=== PATIENT | female | born 1965 | race Hispanic/Latino ===

== ENCOUNTER 2017-10-30 12:20 | Emergency (ER) | payer OTHER ==
--- NOTE | 2017-10-30 14:06 | ER ---
Nurse's Notes [facility] Name: Fanny Vargas Age: 52 yrs Sex: Female : 1965 Arrival Date: 10/30/2017 Time: 12:23 Bed Waiting Private MD: Bhupinder Julien Diagnosis: Presentation: 10/30 12:37 Presenting complaint: Patient states: " My wrist really hurts, I don't know if I tried ph to catch myself on it or what." Pt reports pain in L wrist that radiates to hand and forearm, no swelling noted, radial pulse strong. Transition of care: patient was not received from another setting of care. Onset of symptoms was October 30, 2017. Risk Assessment: Do you want to hurt yourself or someone else? Patient reports no desire to harm self or others. Initial Sepsis Screen: Does the patient meet any 2 criteria? No. Patient's initial sepsis screen is negative. Does the patient have a suspected source of infection? No. Patient's initial sepsis screen is negative. Care prior to arrival: None. 12:37 Method Of Arrival: Ambulatory ph 12:37 Acuity: SUKHDEV 4 ph PHLEBOTOMY SUPERVISOR: 12:39 LMP N/A - Post-menopause ph Historical: - Allergies: 12:40 No Known Allergies; ph - Home Meds: 12:40 Amitriptyline Oral [Active]; Celexa Oral [Active]; Naproxen Oral [Active]; ph - PMHx: 12:40 Rheumatoid Arthritis; Fibromyalgia; ph - PSHx: 12:40 Cholecystectomy; Knee surgery; ; Hysterectomy; ph - Social history:: Smoking status: Patient/guardian denies using tobacco. Vital Signs: 12:39 BP 136 / 73; Pulse 70; Resp 18; Temp 97.4(TE); Pulse Ox 97% on R/A; Weight 104.33 kg; ph Height 5 ft. 0 in. (152.40 cm); Pain 10/10; 12:39 Body Mass Index 44.92 (104.33 kg, 152.40 cm) ph ED Course: 12:23 Patient arrived in ED. sb2 12:23 Bhupinder Julien DO is Private Physician. sb2 12:39 Triage completed. ph 12:40 Arm band placed on Patient placed in waiting room, Patient notified of wait time. ph 13:51 Patient's name was called from ER lobby. No response. ph 14:05 Patient's name was called from ER lobby. No response. Unable to locate patient. Will ph disposition as left without being seen by a provider. Administered Medications: No medications were administered Outcome: 14:06 Patient left the ED. ph Signatures: Danica Altamirano RN RN Alejandra Whitfield sb2
[2017-10-30 14:17] VITALS: BP 136/73; TEMP 97.4; O2SAT 97
== END 2017-10-30 14:06 | disposition left against medical advice (07) ==
LOC: ER 12:20
DX: Z53.21 Procedure and treatment not carried out due to patient leaving prior to being seen by health care provider (principal)
CPT/HCPCS: 99281

== ENCOUNTER 2019-01-13 07:05 | Day surgery (SDC) | payer OTHER ==
--- NOTE | 2019-01-11 15:36 | RAD REPORT ---
EXAM DESCRIPTION: RAD - Chest Pa And Lat (2 Views) - 01/11/2019 3:25 pm CLINICAL HISTORY: preop Chest pain. COMPARISON: CHEST SINGLE VIEW dated 03/13/2010; CHEST PA AND LAT 2 VIEW dated 09/26/2008; CHEST PA AND LAT 2 VIEW dated 05/16/2007 FINDINGS: The lungs are clear. The heart is normal in size. No displaced fractures. IMPRESSION: No acute or concerning finding suspected.
[2019-01-11 16:10] LABS: Absolute Lymphocytes (CBC) 2.4 K/uL (0.7-4.9); Basophils % 0.7 % (0-1.3); Hematocrit 42.9 % (36.0-45.0); Lymphocytes % 25.3 % (15.3-44.8); MPV 10.4 fL (7.6-11.3); RBC Red Blood Cell Count 4.62 M/uL (3.86-4.86)
[2019-01-11 16:22] LABS: BUN Blood Urea Nitrogen 15 mg/dL (7-18); Bicarbonate 27 mmol/L (21-32); Glucose Level 82 mg/dL (74-106); Potassium 3.8 mmol/L (3.5-5.1); Sodium Level 139 mmol/L (136-145)
--- NOTE | 2019-01-11 16:28 | EKG ---
Test Date: 2019-01-11 Test Time: 14:58:17 Customer Care Coordinator: BELIA MEASUREMENT RESULTS: Intervals: Rate: 78 DC: 142 QRSD: 96 QT: 398 QTc: 453 [place]: P: 42 DC: 142 QRS: -10 T: 16 INTERPRETIVE STATEMENTS: Normal sinus rhythm Incomplete right bundle branch block Cannot rule out Anterior infarct, age undetermined Abnormal ECG Compared to ECG 05/14/2011 11:08:43 Incomplete right bundle-branch block now present Myocardial infarct finding now present Electronically Signed On 01-11-19 16:27:50 RADIOGRAPHIC TECHNOLOGIST by Janusz Aguayo
--- OUTSIDE RECORDS SUMMARY | 2019-01-13 07:10 | XMS REPORT ---
:1965 Author Organization [employer] Care Team Providers Name Role Phone Wily Bhupinder Provider Role Unavailable Allergies, Adverse Reactions, Alerts Substance Reaction Event Type N.K.D.A. Info Not Available Non Drug Allergy Problems Problem Type Condition Code Onset Dates Condition Status Problem Depression with anxiety F41.8 Active Problem Insomnia G47.00 Active Problem Fibromyalgia M79.7 Active Assessment Upper respiratory tract infection, J06.9 Active unspecified type Assessment Acute non-recurrent maxillary J01.00 Active sinusitis Problem Repetitive intrusions of sleep G47.9 Active Problem Daytime somnolence R40.0 Active Problem Mild intermittent asthma with J45.21 Active exacerbation Problem Current tobacco use Z72.0 Active Problem Osteoarthritis involving multiple M15.9 Active joints on both sides of body Problem Blood pressure elevated without R03.0 Active history of HTN Problem Asthma without acute exacerbation J45.909 Active Medications Medication Code Code Instructions Start End Status Dosage System Date Date Celexa [facility] 62243805034 40 MG Orally Active 1 tablet Once a day Omeprazole [facility] 24258669804 20 MG Orally Active 1 capsule Once a day Amitriptyline HCl ND 15647729837 10 MG Orally Active 1/2 tablet ONCE DAILY IN PM Omeprazole ND 18571508043 20 MG Orally Active 1 capsule Once a day Symbicort [facility] 92609334638 160-4.5 MCG/ACT Feb 24, Feb 19, Active 2 puffs Inhalation 2018 2019 Twice a day Amoxicillin-Pot ND 61985808072 875-125 MG Dec 01, Dec 11, Active 1 tablet Clavulanate Orally every 12 2018 2019 hrs Benzonatate ND 52601734296 200 MG Orally Dec 01, Dec 11, Active 1 capsule Three times a 2018 2019 day Results Name Result Date Reference Range Unit Abnormality Flag STREP A RAPID ----Result Neg [id number] FLU TEST A/B ----B Neg [id number] ----A Neg [id number] Summary Purpose eClinicalWorks Submission
--- OUTSIDE RECORDS SUMMARY | 2019-01-13 07:10 | XMS REPORT ---
:1965 [facility] Address [address] [place] [address] [address]. [address] [place] [address] Care Team Providers Name Role Phone Unavailable Unavailable Unavailable Problems This patient has no known problems. Allergies, Adverse Reactions, Alerts This patient has no known allergies or adverse reactions. Medications This patient has no known medications.
[2019-01-13] MEDS ORDERED: Ringers Lactate 1,000 ML IV ONE (07:13)
[2019-01-13] MEDS ORDERED: CEFAZOLIN/SWI 1gm 1 GM/10 ML SYR ONE (07:13)
[2019-01-13] MEDS ORDERED: FENTANYL CITR 100 MCG/2 ML ONE (08:10)
[2019-01-13] MEDS ORDERED: MIDAZOLAM HCL 2 MG/2 ML INJ ONE (08:10)
[2019-01-13] MEDS ORDERED: PROPOFOL 200 MG/20 ML VIAL IV ONE (08:10)
[2019-01-13] MEDS ORDERED: LIDOCAINE 2% MPF 5 ML VIAL ONE (08:10)
[2019-01-13] MEDS ORDERED: ONDANSETRON 4 MG/2 ML VIAL ONE (08:11)
[2019-01-13] MEDS ORDERED: EPHEDRINE SULF 50 MG/ML VIAL ONE (09:56)
--- NOTE | 2019-01-13 10:12 | P.BOP ---
Preoperative diagnosis: left breast tender mass Postoperative diagnosis: same Primary procedure: Left breast lumpectomy needle localized Tailor Fitter: Vibha Arndt (Dharmesh) Estimated blood loss: <10cc Specimen: mass Findings: mass within the specimen by Dr Thorpe Anesthesia: General Complications: None Transferred to: Recovery Room Condition: Good
[2019-01-13] MEDS ORDERED: PROMETHAZINE 25 MG/ML VIAL ONE (10:40)
[2019-01-13] MEDS: HYDROMORPHONE HCL 1 MG/ML INJ ONE ×2 (11:05→11:15)
[2019-01-13 11:26] VITALS: O2SAT 98
--- NOTE | 2019-01-13 11:32 | RAD REPORT ---
EXAM DESCRIPTION: US - Surgical Specimen - 01/13/2019 10:35 am CLINICAL HISTORY: Breast mass FINDINGS: The 11 millimeter hypoechoic mass is present within the resected breast tissue
[2019-01-13] MEDS ORDERED: CODEINE 30MG/APAP 300MG TAB ONE (11:45)
--- NOTE | 2019-01-13 11:52 | RAD REPORT ---
EXAM DESCRIPTION: US - Brst,Preop NL Wire Init w/Guid - 01/13/2019 8:40 am CLINICAL HISTORY: Breast mass. COMPARISON: December 22, 2018. TECHNIQUE: The skin, subcutaneous tissues and breast tissues were anesthetized with Lidocaine Under sonographic guidance, a 7 cm Kopan's hook wire was placed adjacent to the 11 mm hypoechoic mass within the upper outer quadrant of the left breast. The patient then left for the surgical department. IMPRESSION: Ultrasound needle wire localization for a left breast mass.
[2019-01-13 12:11] VITALS: BP 112/69; TEMP 97.2
--- NOTE | 2019-01-13 20:37 | OP ---
Date of Procedure: 01/13/2019 Surgeon: Patrick Forrest MD House Decorator: Vibha Orellana. Preoperative Diagnosis: Left breast tender mass. Postoperative Diagnosis: Left breast tender mass. Procedure: Left breast lumpectomy, needle localized. Estimated Blood Loss: Less than 10 cc. Specimen: Mass. Anesthesia: General plus local. Indications: This is a case of a 53-year-old patient, who comes to us with left breast tender mass a nd she wants it excised. Given the pain and discomfort, barely can put her bra on. The benefits, al ternatives, and risks of lumpectomy were fully explained to the patient needle localized with benefit s, alternatives, and risks including, but not limited to infection, bleeding, damage to adjacent stru ctures, anesthesia complication, recurrence, PR, and even . She also understands this may not r elieve any symptoms. She might need more than one surgical intervention. She understood and signed the consent. The patient went this morning. Dr. Hanna localized the area in the radiology suite. Patient is sent to the OR making sure the wire remains intact. Description Of Procedure: Patient was brought to the operating room, placed in supine position. Ane sthesia was done without complication. Time-out was called. Left breast was prepped and draped in a sterile fashion once again making sure the wire was intact. A curvilinear incision was made over th e wire area. Wire was secured to the breast tissue with an Allis and then we proceeded to remove the lump around the area. This was a large lump, mostly some density in that region. The mass was sent to the radiologist, Dr. Hanna, who confirmed the lesion within the specimen, also intact wire. We irrigated the area, closed with 4-0 PDS and Steri-Strips on top. This was after hemostasis and loca l anesthetic. Patient tolerated the procedure well. Patient was sent to recovery in stable conditio nNeelam REGALADO/LEDY Voice ID: [id number] Report ID: [id number]
--- NOTE | 2019-01-13 20:37 | DS ---
Date of Discharge: 01/13/2019 Diagnosis: Left breast tender mass. Procedure: Left breast lumpectomy, needle localized. Disposition: Home. Activity: As tolerated. No heavy lifting. Followup: Follow up in my office in 1 week. Call for appointment at [phone]. Keep area dry for 48 hours, then may shower. Keep Steri-Strips intact. Use breast support. Patient will be seen in 1 w [place] in my office. SABINE/LEDY Voice ID: [id number] Report ID: [id number]
== END 2019-01-13 12:20 | disposition home or self-care (01) ==
LOC: OR 07:05
PROVIDERS: ATTEND Surgery
PROC: 0HBU0ZZ Excision of Left Breast, Open Approach (ICD-10-PCS; principal; 2019-01-13 09:45)
DX: N63.21 Unspecified lump in the left breast, upper outer quadrant (principal); J45.909 Unspecified asthma, uncomplicated; M79.7 Fibromyalgia; M13.859 Other specified arthritis, unspecified hip; F32.9 Major depressive disorder, single episode, unspecified; E66.01 Morbid (severe) obesity due to excess calories; Z68.41 Body mass index [BMI] 40.0-44.9, adult; F17.210 Nicotine dependence, cigarettes, uncomplicated; Z82.49 Family history of ischemic heart disease and other diseases of the circulatory system
CPT/HCPCS: 93005; 85025; 80048; 36415; 88305; 71046; 76098; 19285; 19301; J2704; J2550; J2250; J3010; J1170; J0690; J7120; J2405

== ENCOUNTER 2020-01-26 06:14 | Day surgery (SDC) | payer OTHER ==
--- NOTE | 2020-01-24 13:11 | RAD REPORT ---
EXAM DESCRIPTION: Camryn Godwin (2 Views)01/24/2020 1:05 pm CLINICAL HISTORY: Preop for breast surgery COMPARISON: 2019 FINDINGS: The lungs appear clear of acute infiltrate. The heart is normal size IMPRESSION: No acute abnormalities displayed
[2020-01-24 13:12] LABS: Absolute Lymphocytes (CBC) 2.9 K/uL (0.7-4.9); Basophils % 0.6 % (0-1.3); Hematocrit 41.5 % (36.0-45.0); Lymphocytes % 28.8 % (15.3-44.8); MPV 10.1 fL (7.6-11.3); RBC Red Blood Cell Count 4.51 M/uL (3.86-4.86)
[2020-01-24 13:28] LABS: BUN Blood Urea Nitrogen 13 mg/dL (7-18); Bicarbonate 28 mmol/L (21-32); Glucose Level 92 mg/dL (74-106); Sodium Level 142 mmol/L (136-145)
--- NOTE | 2020-01-25 12:06 | EKG ---
Test Date: 2020-01-24 Test Time: 12:45:57 Automobile Parker: MARYBEL MEASUREMENT RESULTS: Intervals: Rate: 70 TN: 144 QRSD: 92 QT: 416 QTc: 449 [place]: P: 37 TN: 144 QRS: -12 T: 21 INTERPRETIVE STATEMENTS: Normal sinus rhythm Normal ECG Compared to ECG 01/11/2019 14:58:17 Incomplete right bundle-branch block no longer present Myocardial infarct finding no longer present Electronically Signed On 01-25-20 11:52:34 WOOD STAINER by Rahat Iniguez
--- OUTSIDE RECORDS SUMMARY | 2020-01-26 06:17 | XMS REPORT | Continuity of Care Document ---
:1965 Author Organization [facility] [place] [employer] [place] Care Team Providers Name Role Phone [facility] Jitendra [employer] Unavailable Un available Problems Problem Status Onset Classification Date Comments Sourc e Date Reported WEIGHT Active [facility] st LOSS, BMI 8 45 C WEIGHT Active [facility] st LOSS, BMI 8 45 Medications No Data Provided for This Section Allergies, Adverse Reactions, Alerts No Known Medication Allergies Immunizations No Data Provided for This Section Results No Data Provided for This Section Pathology Reports No Data Provided for This Section Diagnostic Reports No Data Provided for This Section Consultation Notes No Data Provided for This Section Discharge Summaries No Data Provided for This Section History and Physicals No Data Provided for This Section Vital Signs No Data Provided for This Section Encounters Location Location Encounter Encounter Reason Attending ADM [place] Stat Source Details Type Number For Provider Date Date Visit [facility] [id number] [facility] 01/23 02/22 [facility] /2017 [facility] Recurring [id number] [facility] 02/27 03/29 [facility] /2018 [facility] Procedures No Data Provided for This Section Assessment and Plan No Data Provided for This Section Plan of Care No Data Provided for This Section Social History Social History Date Source No data available for this 02/22/2018 [facility] section Family History No Data Provided for This Section Advance Directives No Data Provided for This Section Functional Status No Data Provided for This Section
--- OUTSIDE RECORDS SUMMARY | 2020-01-26 06:17 | XMS REPORT | Continuity of Care Document ---
:1965 Author Organization [facility] t Address [address] [place] [address] Care Team Providers Name Role Phone Felipe Attending Clinician Unavailable Problems Condition Condition Condition Status Onset Resolution Last Treating Co mments Source Name Details Category Date Date Treatment Clinician Date WEIGHT Diagnosis Active 2017-022018-02-27 [facility] LOSS, BMI 2-07 09:07:00 l 45 C WEIGHT 00:00: Tl n LOSS, BMI 00 45 C Active 01/23/2018 [facility] WEIGHT Diagnosis Active 2017-022018-01-23 Mem oria LOSS, BMI 1-30 09:36:00 l 45 WEIGHT 00:00: [place] LOSS, BMI 00 45 Active 8 [facility] Allergies, Adverse Reactions, Alerts This patient has no known allergies or adverse reactions. Social History Social Habit Start Date Stop Date Quantity Comments Source Social History 2018-02-22 2018-02-22 [facility] pratima 05:59:00 05:59:00 Medications Ordered Filled Start Stop Current Ordering Indication Dosage Frequency Signature Comments Components Source Medication Medication Date Date Medication? Clinician (SIG) Name Name Amoxicillin Amoxicillin 2018-02- No Bhupinder [address] [facility] 0-15 10-25 [facility] Cl[facility] 00[facility] Benzonatate Benzonatate 2018-02- No Bhupinder [address] [facility] 0-15 10-25 [facility] Symbicort Symbicort 2019-0 2020- No Bhupinder [address] [facility] 102-19 [facility] Amitriptyli Amitriptyli Yes Bhupinder 1/[address] [facility] ne HCl ne HCl [facility] Celexa Celexa Yes [facility] Omeprazole Omeprazole Yes Bhupinder [address] [facility] Omeprazole Omeprazole Yes Bhupinder [address] [facility] Procedures This patient has no known procedures. Encounters Start End Encounter Admission Attending Care Care Encounter Source Date/Time Date/Time Type Type Clinicians Facility Department ID 2019-12-02 2019-12-02 [facility] [id number] 2019-05-13 2019-05-13 [facility] [id number] [facility] 11:52:00 11:52:00 t IDverge s [employer] [facility] Out[facility] Clinics 2018-12-01 2018-12-01 [facility] [id number] [facility] 09:15:00 09:15:00 t IDverge s [employer] [facility] Out[facility] Clinics 2018-08-03 2018-08-03 [facility] [id number] [facility] 13[facility]45:00 13:45:00 t IDverge s - [employer] [facility] Outpati ent Clinics 2018-02-27 2018-03-28 Outpatient REX [facility] [id number] 09:07:00 23:59:00 Libby 01 2018-03-17 2018-03-17 [facility] [id number] 12:21:00 12:21:00 t IDverge s [employer] [facility] Out[facility] Clinics 2018-02-24 2018-02-24 [facility] [id number] [facility] 10:30:00 10:30:00 t RUN [facility] 2018-01-23 2018-02-21 Outpatient KARL Wang [facility] [id number] 09:28:00 23:59:00 Libby 00 2018-02-03 2018-02-03 [facility] [id number] [address] 13:15:00 13:15:00 [facility] 2017-12-03 2017-12-03 [facility] [id number] 16:00:00 16:00:00 [facility] Results This patient has no known results.
[2020-01-26] MEDS ORDERED: CEFAZOLIN/SWI 1gm 1 GM/10 ML SYR ONE (07:05)
[2020-01-26] MEDS ORDERED: Ringers Lactate 1,000 ML IV ONE (07:05)
[2020-01-26] MEDS ORDERED: METHYLENE BLUE 0.5% 10 ML AMP ONE (07:40)
[2020-01-26] MEDS: FENTANYL CITR 100 MCG/2 ML ONE ×2 (08:11→08:22)
--- NOTE | 2020-01-26 08:28 | RAD REPORT ---
EXAM DESCRIPTION: US - Brst,Preop NL Wire Init w/Guid - 01/26/2020 8:08 am CLINICAL HISTORY: NEEDLE LOC COMPARISON: Mammogram and ultrasound studies January 02 TECHNIQUE: Patient presents for preoperative needle localization of a hypoechoic mass in the upper o uter quadrant of the breast. Prior imaging studies were reviewed. Consent was obtained as part of the surgical consent. Patient had no contraindicated allergy or medication history. Time-out procedure w as performed. Preliminary imaging again identified the hypoechoic 7- 8 millimeter mass in the [address] o[address] approximately 1.5 cm deep to the skin surface. Skin was prepped and draped in the usual sterile fa shion. From an inferior approach, skin and deeper tissues were anesthetized with 1% lidocaine under d irect sonographic visualization. A [place] mammo lock 5 centimeter long was advanced under sonographic guidance. Needle tip punctured the mass and the hookwire was set. Patient tolerated procedure well and was transferred to the surgical holding area pending biopsy. IMPRESSION: Successful ultrasound-guided needle localization right breast mass as detailed.
[2020-01-26] MEDS ORDERED: dexAMETHasone 10 MG/ML VIAL ONE (09:14)
[2020-01-26] MEDS ORDERED: FENTANYL CITR 100 MCG/2 ML ONE (09:14)
[2020-01-26] MEDS ORDERED: MIDAZOLAM HCL 2 MG/2 ML INJ ONE (09:14)
[2020-01-26] MEDS ORDERED: propofoL 200 MG/20 ML VIAL IV ONE (09:14)
[2020-01-26] MEDS ORDERED: LIDOCAINE 2% MPF 5 ML VIAL ONE (09:14)
[2020-01-26] MEDS ORDERED: ONDANSETRON 4 MG/2 ML VIAL ONE (09:15)
--- NOTE | 2020-01-26 10:00 | P.BOP ---
Preoperative diagnosis: right breast tender mass/complex cyst Postoperative diagnosis: same Primary procedure: Excisional biopsy of right breast mass needle localized Transplant Worker: GREGORY VILLALPANDO (EGG SORTER) Estimated blood loss: <10cc Anesthesia: General Complications: None Transferred to: Recovery Room Condition: Good
[2020-01-26] MEDS ORDERED: MORPHINE 10 MG/ML VIAL ONE (10:02)
[2020-01-26] MEDS ORDERED: KETOROLAC 30 MG/ML INJ ONE (10:29)
[2020-01-26] MEDS ORDERED: MEPERIDINE HCL 25 MG/ML SYR IV ONE ×2 (10:37→10:54)
[2020-01-26] MEDS ORDERED: HYDROMORPHONE HCL 1 MG/ML INJ IV ONE (10:39)
[2020-01-26] MEDS ORDERED: PROMETHAZINE INJ 25 MG/ML AMP IV ONE (10:48)
[2020-01-26] MEDS ORDERED: HYDROMORPHONE HCL 1 MG/ML INJ ONE (10:52)
[2020-01-26] MEDS ORDERED: MEPERIDINE HCL 25 MG/ML SYR ONE (10:52)
[2020-01-26] MEDS ORDERED: PROMETHAZINE INJ 25 MG/ML AMP ONE (11:02)
--- NOTE | 2020-01-26 11:52 | DS ---
Diagnosis: Right breast tender mass, complex cyst. Procedure: Excisional biopsy of right breast mass, needle localized. Disposition: Home. Activity: As tolerated. No heavy lifting. Plan: Follow up in my office in 1 week. Call for appointment [phone]. Keep area dry for 48 hours, then may shower. Keep Steri-Strips intact. Use breast support. JONATHAN Voice ID: [id number] Report ID: [id number]
[2020-01-26 11:59] VITALS: BP 133/68; TEMP 97; O2SAT 98
--- NOTE | 2020-01-26 12:06 | OP ---
Date of Procedure: 01/26/2020 Surgeon: Patrick Forrest MD Floor Steward/Stewardess: Dinora Deleon. Diagnosis: Right breast tender mass complex cyst. Postoperative Diagnosis: Right breast tender mass complex cyst. Procedure: Excisional biopsy right breast mass needle localized. Estimated Blood Loss: Less than 10 mL. Anesthesia: General plus local. Complications: None. Findings: Lesion within the specimen by Dr. Javier with intact needle. Description Of Procedure: This is the case of a female, who comes to us with a tender right upper qu adrant mass complex cyst. She was fully explained the options that she might have. She wants it exc ised and biopsied Since this might be a complex cyst, then we would not be able to get specific or de finite conclusion for her, so she wants the mass excised. Due to location we believe that it should be needle localized first and she did agree. The patient went this morning to Radiology suite which she had localization of the mass and then brought to the OR and keeping the area intact. The patient was brought to the operating room after that. The patient fully explained again the benefits, alter natives, and risks of excision which include, but not limited to infection, bleeding, damage to adjac ent structures, anesthesia complication, recurrence, [place], and even . She also understands this m ay not relieve her symptoms. She might need more than one surgical intervention. The patient kate t to the operating room, placed in supine position. Anesthesia was done without complication. A sylwia e-out was called. The right breast was prepped and draped in a sterile fashion. We confirmed with h er it was the right breast and noted in the part of the consent. The patient was confused about the site, but then she agreed with us it was the right side and Radiology too, so that was checked before we put her to sleep. Once again, she did agree with the right breast, that area was marked. So, af ter the patient was anesthetized, then we prepped the right breast in usual sterile fashion. Local a nesthesia was applied, followed by sharp incision of the skin curvilinear in area next to the needle. The needle and the breast tissue were secured with Allis and then we proceeded to remove the lump a nd the tissue surrounding the area. The mass was marked for orientation and sent with the needle to radiologist who confirmed the lesion within the specimen. was closed. Just we irrigated the area after hemostasis and then closed the area with 3-0 chromic after making sure the sponge coun t and instrument count is correct. Patient tolerated the procedure well. Patient sent to Recovery i n stable condition. SABINE/LEDY Voice ID: [id number] Report ID: [id number]
--- NOTE | 2020-01-26 12:36 | RAD REPORT ---
EXAM DESCRIPTION: US - Surgical Specimen - 01/26/2020 10:19 am FINDINGS: Sonographic evaluation was performed of the surgical specimen. The localization procedure was detailed earlier. Specimen shows the hypoechoic mass to be contained within the specimen.
[2020-01-26] MEDS ORDERED: CODEINE 30MG/APAP 300MG TAB ONE (12:53)
== END 2020-01-26 13:15 | disposition home or self-care (01) ==
LOC: OR 06:14
PROVIDERS: ATTEND Surgery
PROC: 0HBT0ZX Excision of Right Breast, Open Approach, Diagnostic (ICD-10-PCS; principal; 2020-01-26 08:30)
DX: N60.11 Diffuse cystic mastopathy of right breast (principal); F41.9 Anxiety disorder, unspecified; F32.9 Major depressive disorder, single episode, unspecified; F17.210 Nicotine dependence, cigarettes, uncomplicated; Z80.3 Family history of malignant neoplasm of breast; Z20.828 Contact with and (suspected) exposure to other viral communicable diseases; M79.7 Fibromyalgia; E66.9 Obesity, unspecified; J45.909 Unspecified asthma, uncomplicated
CPT/HCPCS: 93005; 85025; 80048; 36415; 88305; 71046; 76098; 19285; 19125; U0002; J2704; J2550 ×2; J2250; J3010 ×2; J1100; J2175 ×3; J1170 ×2; J0690; J7120; J2405

== ENCOUNTER 2021-11-04 11:51 | Emergency (ER) | payer OTHER ==
--- OUTSIDE RECORDS SUMMARY | 2021-11-04 11:55 | XMS REPORT | Continuity of Care Document ---
:1965 Author Organization [facility] t Address [address] [place] [place] [address] Care Team Providers Name Role Phone AGRENTINA JULIEN Primary Care Physician Unavailable [place] Julien Attending Clinician Unavailable Apolinar CARY Attending Clinician Unavailable Apolinar Stark Attending Clinician Elgin PhD, Sharon Hinojosa Attending Clinician Unavailable LITO HAYDEN Attending Clinician Unavailable FELECIA POLANCO Attending Clinician Unavailable Devan Logan MD Attending Clinician Devan LOGAN Attending Clinician Unavailable Dinora Segovia Attending Clinician Unavailable Doctor Unassigned, [place] Attending Clinician Unavailable Libby Wang Attending Clinician Unavailable Payers Payer Name Policy Type Policy Number Effective Date Expiration Date S phylicia HUMANA CHOICE [id number] 2017 00:00:00 [employer] MEDICARE [id number] HMO - RNPO PCP MEDICARE-PART B 5 [id number] 2021 00:00:00 Problems Condition Condition Condition Status Onset Resolution Last Treating Co mments Source Name Details Category Date Date Treatment Clinician Date WEIGHT WEIGHT Diagnosis Active 2017-022018-02-27 Me moria LOSS, BMI LOSS, BMI 2-07 09:07:00 l 45 C 45 C 00:00: Tl monzon Active 00 01/23/2018 [facility] WEIGHT WEIGHT Diagnosis Active 2017-022018-01-23 Me moria LOSS, BMI LOSS, BMI 1-30 09:36:00 l 45 45 Active 00:00: Jitendra 01/16/2018 00 [facility] No known No known Disease Unive rs active active ity of problems problems [facility] Allergies, Adverse Reactions, Alerts Allergy Allergy Status Severity Reaction(s) Onset Inactive Treating Comm ents Source Name Type Date Date Clinician NO KNOWN Drug Active Univers ALLERGIE Class ity of S [facility] Social History Social Habit Start Date Stop Date Quantity Comments Source History of tobacco Cigarette Smoker [facility] Medicine Exposure to 2021-10-23 2021-11-02 Not sure University SARS-CoV-2 (event) 00:00:00 10:37:00 [facility] Alcohol intake 2021-07-09 2021-07-09 .43 /d [facility] Col lege of 00:00:00 00:00:00 Medicine Cigarettes smoked 2021-06-27 2021-06-27 [facility] of current (pack per 00:00:00 00:00:00 Medicin e day) - Reported Cigarette 2021-06-27 2021-06-27 [facility] of pack-years 00:00:00 00:00:00 Medicine Tobacco use and 2021-06-27 2021-06-27 Smokeless [facility] Co llege of exposure 00:00:00 00:00:00 tobacco non-user Medicine Sex Ass[birth year] At [birth year] JODIE Nettless 00:00:00 00:00:00 [facility] Center Smoking Status Start Date Stop Date Source Tobacco smoking consumption Univ [facility] Branch Light tobacco smoker 2021-06-27 00:00:00 [facility] Medicine Medications Ordered Filled Start Stop Current Ordering Indication Dosage Frequency Signature Comments Components Source Medication Medication Date Date Medication? Clinician (SIG) Name Name diphenhydrA 25mg 25 mg, Uni vers MINE 11-02 Slow IV ity of (BENADRYL) 18:45: 17:45 [place], [place] injection 00 :00 ONCE, 1 Medical 25 mg dose, On Branch 11/02/21 at 1345, STAT metoclopram 2021- No 10mg 10 mg, Uni vers quiana HCl 11-02 Slow IV ity of (REGLAN) 18:45: 17:45 Push, [place] injection 00 :00 ONCE, 1 Medical 10 mg dose, On Branch 11/02/21 at 1345, YUSRA ketorolac 2021- No 15mg 15 mg, Unive rs (TORADOL) 11-02 Slow IV ity of injection 18:45: 17:44 Push, [place] 15 mg 00 :00 ONCE, 1 Medical dose, On Branch 11/02/21 at 1345, YUSRA NaCl 0.9% 2021- No 1000mL at 999 Uni vers (NS) bolus 11-02 mL/hr, ity of infusion 18:15: 18:35 1,000 mL, [place] as 1,000 mL 00 :00 IV Medical Infusion, Branch ONCE, 1 dose, On 11/02/21 at 1315, STAT ondansetron 2021- No 4mg 4 mg, Univ ers (ZOFRAN-ODT 11-02 Oral, ity of ) 17:30: 16:23 ONCE, 1 [place] disintegrat 00 :00 dose, On Medi andrews ing tablet Fri Branch 4 mg 11/02/21 at 1230, Routine acetaminoph 2021- No 1000mg 1,000 mg, Univers en 11-02 Oral, ity of (TYLENOL) 16:30: 16:23 ONCE, 1 [place] tablet 00 :00 dose, On Medical 1,000 mg Fri Branch 11/02/21 at 1130, YUSRA ibuprofen 2021-0 Yes [id number] 600mg Take 1 U nivers 600 mg 9-16 tablet by ity of tablet 00:00: mouth [place] 00 every 6 Medical (six) Branch hours as needed for Pain (scale 4-6). ondansetron 2021-0 Yes [id number] 4mg Take 1 Univers 4 mg 9-16 tablet by ity of disintegrat 00:00: mouth [place] ing tablet 00 every 8 Medica l (eight) Branch hours as needed for Nausea and Vomiting (N/V). benzonatate Yes [id number] 200mg Take 1 Univers 200 mg 9-16 capsule by ity of capsule 00:00: mouth 3 [place] 00 (three) Medical times Branch daily as needed for Cough for up to 20 doses. albuterol 0 Yes 3 ml as [facility] (PROVENTIL) 06-27 needed Colleg e (2.5 mg/3 09:58: of mL) 0.083% 51 Medicin nebulizer e solution Nebulizer Yes See Admin [place] [facility] 06-27 [facility] 09:58: ns. of [facility] [place] Medicin e omeprazole 0 Yes 1 capsule [facility] (PRILOSEC) 06-27 [facility] 20 MG 09:58: of capsule 51 Medicin e trazodone 0 Yes TAKE 1 [facility] (DESYREL) 06-27 TABLET BY Colle ge 100 MG 09:58: MOUTH of tablet 51 EVERYDAY Medicin AT BEDTIME e albuterol 0 Yes 3 ml as [facility] (PROVENTIL) 06-27 needed Colleg e (2.5 mg/3 09:58: of mL) 0.083% 51 Medicin nebulizer e solution Nebulizer Yes See Admin [place] [facility] 06-27 [facility] 09:58: ns. of [facility] [place] 51 Medicin e omeprazole 0 Yes 1 capsule [facility] (PRILOSEC) 06-27 [facility] 20 MG 09:58: of capsule 51 Medicin e trazodone 0 Yes TAKE 1 [facility] (DESYREL) 511 TABLET BY Colle ge 100 MG 09:58: MOUTH of tablet 51 EVERYDAY Medicin AT BEDTIME e albuterol 2021-0 Yes 3 ml as [facility] (PROVENTIL) 06-27 needed Colleg e (2.5 mg/3 09:58: of mL) 0.083% 51 Medicin nebulizer e solution Nebulizer Yes See Admin [place] [facility] 06-27 [facility] 09:58: ns. of [facility] [place] 51 Medicin e omeprazole 0 Yes 1 capsule [facility] (PRILOSEC) 06-27 [facility] 20 MG 09:58: of capsule 51 Medicin e trazodone Yes TAKE 1 [facility] (DESYREL) 06-27 TABLET BY Colle ge 100 MG 09:58: MOUTH of tablet 51 EVERYDAY Medicin AT BEDTIME e albuterol Yes 3 ml as [facility] (PROVENTIL) 06-27 needed Colleg e (2.5 mg/3 09:58: of mL) 0.083% 51 Medicin nebulizer e solution Nebulizer Yes See Admin [place] [facility] 06-27 [facility] 09:58: ns. of MISC 51 Medicin e omeprazole Yes 1 capsule [facility] (PRILOSEC) 06-27 [facility] 20 MG 09:58: of capsule 51 Medicin e trazodone Yes TAKE 1 [facility] (DESYREL) 06-27 TABLET BY Colle ge 100 MG 09:58: MOUTH of tablet 51 EVERYDAY Medicin AT BEDTIME e Amoxicillin Amoxicillin 2018-02- No [place] 1 tablet Common -Pot -Pot 0-15 10-25 [facility] Clavulanate Clavulanate 00:00: 00:00 - CHI 00 :00 [facility] Benzonatate Benzonatate 2018-02- No [place] 1 capsule Common 0-15 10-25 [facility] 00:00: 00:00 - CHI 00 :00 [facility] Symbicort Symbicort 2020- No [place] 2 puffs Common 1-08 01-03 [facility] 00:00: 00:00 - CHI 00 :00 [facility] albuterol Yes 2{puff} Inhale 2 U nivers (PROAIR 1-06 Puffs ity of HFA) 90 00:00: every 6 [place] mcg/actuati 00 (six) Medical on inhaler hours as Branc h needed for Wheezing or Shortness of Breath. albuterol Yes 2.5mg Inhale 3 Uni vers 2.5 mg /3 1-06 mL every 4 ity of mL (0.083 00:00: (four) [place] %) 00 hours as Medical nebulizer needed for Bran ch solution Wheezing or Shortness of Breath. albuterol 2019-0 Yes 2{puff} Inhale 2 U nivers (PROAIR 1-06 Puffs ity of HFA) 90 00:00: every 6 [place] mcg/actuati 00 (six) Medical on inhaler hours as Branc h needed for Wheezing or Shortness of Breath. albuterol Yes 2.5mg Inhale 3 Uni vers 2.5 mg /3 1-06 mL every 4 ity of mL (0.083 00:00: (four) [place] %) 00 hours as Medical nebulizer needed for Bran ch solution Wheezing or Shortness of Breath. ALBUTEROL 2017-0 Yes [facility] [place] [address] [place] [address] 00:00: of Medicin e ALBUTEROL Yes [address] 00:00: of Medicin e ALBUTEROL 2017-[address] 00:00: of Medicin e ALBUTEROL 2017-[address] 00:00: of 00 Medicin e citalopram 2015-0 Yes 1{tbl} 1 Tablet. [facility] (CELEXA) 40 5-14 College MG tablet 00:00: of 00 Medicin e citalopram 2016-0 Yes 1{tbl} 1 Tablet. [place] (CELEXA) 40 5-14 College MG tablet 00:00: of 00 Medicin e citalopram 2016-0 Yes 1{tbl} 1 Tablet. [place] (CELEXA) 40 5-14 College MG tablet 00:00: of 00 Medicin e citalopram 2016-0 Yes 1{tbl} 1 Tablet. [facility] (CELEXA) 40 5-14 College MG tablet 00:00: of 00 Medicin e LEVOTHYROXI Yes None Univer s NE 75 MCG 8-04 Entered ity of ORAL TAB 14:21: [address] CELEXA 40 Yes None Univers MG ORAL TAB 8-04 Entered ity o f 14:21: [address] LEVOTHYROXI Yes None Univer s [place] 75 MCG 8-04 Entered ity of ORAL TAB 14:21: [address] CELEXA 40 Yes None Univers MG ORAL TAB 8-04 Entered ity o f 14:21: [address] HYDROCODONE 2007-1 Yes Take one Un evelia -ACETAMINOP 2-09 by mouth ity of HEN 5-325 [place]AL [place] 00 6 hours as Me dical needed for Branch pain. HYDROCODONE 2006-02 Yes Take one Un evelia -ACETAMINOP 2-09 by mouth ity of HEN 5-325 [place]AL TAB 00 6 hours as Me dical needed for Branch pain. CYCLOBENZAP 2006-02 Yes Take one Un evelia RINE 5 MG 2-03 tablet by ity o f ORAL TAB 00:00: mouth [place] three Medical times a Branch day HYDROCODONE 2006-02 Yes Take one Un evelia -ACETAMINOP 2-03 by mouth ity of HEN 5-325 [place]AL TAB 00 6 hours as Me dical needed for Branch pain. IBUPROFEN 2006-02 Yes one tab po Un evelia 800 MG ORAL 2-03 tid. ity of TAB 00:00: [place] [facility] CYCLOBENZAP 2006-02 Yes Take one Un evelia RINE 5 MG 2-03 tablet by ity o f ORAL TAB 00:00: mouth three Medical times a Branch day HYDROCODONE 2006-02 Yes Take one Un evelia -ACETAMINOP 2-03 by mouth ity of HEN 5-325 [place]:00: [place]AL TAB 00 6 hours as Me dical needed for Branch pain. IBUPROFEN 2006-02 Yes one tab po Un evelia 800 MG ORAL 2-03 tid. ity of TAB 00:00: Medical Branch HYDROCODONE 2005-0 Yes 1-2 Tab Uni vers -ACETAMINOP 9-23 Oral ity of HEN 5-325 00:00: Q4HPRN [place] MG ORAL TAB 00 Medical Branch DOCUSATE 2005-0 Yes take one Unive rs SODIUM 100 9-23 po bid ity of MG ORAL CAP 00:00: Medical Branch HYDROCODONE 2005-0 Yes 1-2 Tab Uni vers -ACETAMINOP 9-23 Oral ity of HEN 5-325 00:00: Q4HPRN [place] MG ORAL TAB 00 Medical Branch DOCUSATE 2005-0 Yes take one Unive rs SODIUM 100 9-23 po bid ity of MG ORAL CAP 00:00: Medical Branch Amitriptyli Amitriptyli Yes [place] 1/2 tablet Common ne HCl ne HCl [facility] Celexa Celexa Yes [place] 1 tablet Commo n [facility] Omeprazole Omeprazole Yes [place] [address] [facility] Omeprazole Omeprazole Yes [place] 1 capsule [facility] Vital Signs Vital Name Observation Time Observation Value Comments Source Systolic blood 2021-11-02 18:00:00 146 mm[Hg] Univer [facility]ity of [facility] Diastolic blood 2021-11-02 18:00:00 59 [facility]Hg[facility] 2021-11-02 18:00:00 83 /min [facility] Oxygen saturation in 2021-11-02 18:00:00 94 /min [facility] blood by [place] [facility] Pulse oximetry Branch Respiratory rate 2021-11-02 17:54:00 22 /min [facility] Body temperature 2021-11-02 15:40:00 37.22 [facility] Body height 2021-11-02 15:40:00 152.4 cm [facility] Body weight 2021-11-02 15:40:00 108.863 kg [facility] BMI 2021-11-02 15:40:00 46.87 kg/m2 [facility] Body weight 2021-10-16 13:13:00 108[facility]727 [facility] BMI 2021-10-16 13:13:00 46.81 kg/m2 [facility] Body height 2021-08-23 13:06:00 [facility].4 [facility] Body weight 2021-08-23 13:06:00 110.859 [facility] BMI 2021-08-23 13:06:00 47.73 kg/m2 [facility] Systolic blood 2021-06-27 14:56:00 137 mm[Hg] [facility] Medicine Diastolic blood 2021-06-27 14:56:00 80 mm[Hg] [employer] [facility] [employer] [facility] Heart rate 2021-06-27 14:56:00 67 /min [facility] Body height 2021-06-27 14:56:00 152.4 cm [facility] Body weight 2021-06-27 14:56:00 109.181 kg [facility] BMI 2021-06-27 14:56:00 47.01 kg/m2 [facility] Procedures Procedure Date / Time Performing Clinician Source Performed CT HEAD WO CONTRAST 2021-11-02 17:23:26 Apolinar Cary [facility] URINALYSIS 2021-11-02 16:36:00 Apolinar Cary [place] [facility] RAPID INFLUENZA A/B 2021-11-02 16:16:00 Apolinar Cary [facility] COVID-19 (ID NOW RAPID 2021-11-02 16:16:[address] [facility] TESTING) [facility] NOTICE OF PRIVACY 2021-11-02 15:30:36 Doctor Unassigned, No Univ [facility] PRACTICES Name [facility] CONSENT/REFUSAL FOR 2021-11-02 15:29:56 [facility], [facility] EGD W/MAC - GI DEPT 2021-10-16 09:18:24 [facility] IRON+TIBC+%SAT 2021-06-27 10:59:31 [facility] IRON, TIBC AND FERRITIN 2021-06-27 10:59:31 [facility] Medicine THYROID PROFILE (T3U - 2021-06-27 10:59:31 [facility] T4 - T7 - TSH) Medicine URINALYSIS, COMPLETE 2021-06-27 10:59:31 [facility]/REFLEX TO CULTURE Medicine VITAMIN A 2021-06-27 10:59:31 [facility] VITAMIN B1 2021-06-27 10:59:31 [facility] VITAMIN B12 2021-06-27 10:59:31 [facility] VITAMIN B-6 LEVEL 2021-06-27 10:59:31 [facility] 25 HYDROXY 2021-06-27 10:59:31 [facility] Medicine AMB REF TO PHYSICAL MED 2021-06-27 10:59:31 [facility] REHAB [facility] AMB REF TO SLEEP LAB 2021-06-27 10:59:31 [facility] EXTERNAL Medicine CBC W/AUTO DIFF WITH 2021-06-27 10:59:31 [facility] COMPREHENSIVE METABOLIC 2021-06-27 10:59:31 [facility] FOLATE 2021-06-27 10:59:31 [facility] HEMOGLOBIN A1C 2021-06-27 10:59:31 [facility] PT INSTR GIVEN - TOBACCO 2021-06-27 10:00:52 [facility] AMB REF TO BARIATRIC 2021-06-20 15:55:27 [facility] SURGERY [facility] REFERRAL- 2021-01-25 06:01:00 Doctor Unassigned, No Univer [facility] REQUEST/RESPONSE Name Medical Branch Plan of Care Planned Activity Planned Date Details Comments Source Future Scheduled 2021-10-18 INFLUENZA VACCINE (#1) [facility] Test 00:00:00 [code = INFLUENZA Medical Ce nter VACCINE (#1)] Future Scheduled 2021-10-16 Screening for malignant [facility] Test 08:24:31 neoplasm of colon of Medicin e (procedure) [code = 001059956] Future Scheduled 2021-10-16 Screening for malignant [facility] Test 08:24:31 neoplasm of breast of Medici ne (procedure) [code = 048444148] Future Scheduled 2021-10-16 COVID-19 Vaccine (#1) [facility] Test 08:24:31 [code = COVID-19 Vaccine of Medicine (#1)] Future Scheduled 2021-10-16 Pneumococcal Combined (1 [facility] Test 08:24:31 - PCV) [code = of Medicine Pneumococcal Combined (1 - PCV)] Future Scheduled 2021-10-16 TETANUS SHOT (ADULT) [facility] Test 08:24:31 [code = TETANUS SHOT of Medi cine (ADULT)] Future Scheduled 2021-10-16 Hepatitis C screening [facility] Test 08:24:31 (procedure) [code = of Medic ine 082885232] Future Scheduled 2021-10-16 Human immunodeficiency [employer] Test 08:24:31 virus screening of Medicine (procedure) [code = 630896820] Future Scheduled 2021-10-16 Screening for malignant [place] [employer] Test 08:24:31 neoplasm of cervix of Medici ne (procedure) [code = 019541546] Future Scheduled 2021-10-16 ZOSTER VACCINE (1 of 2) [place] [employer] Test 08:24:31 [code = ZOSTER VACCINE of Me dicine (1 of 2)] Future Scheduled 2021-10-16 MEDICARE IPPE (WELCOME [facility] [employer] Test 08:24:31 TO MEDICARE) [code = of Medi cine MEDICARE IPPE (WELCOME TO MEDICARE)] Future Scheduled 2021-10-16 FLU VACCINE > 6 MONTHS [employer] Test 08:24:31 [code = FLU VACCINE > 6 of M edicine MONTHS] Future Scheduled 2021-10-16 BMI FOLLOW UP PLAN [code [facility] Test 08:24:31 = BMI FOLLOW UP PLAN] of Med icine Future Scheduled 2021-10-16 Screening for malignant [facility] Test 08:24:31 neoplasm of colon of Medicin e (procedure) [code = 224640500] Future Scheduled 2021-10-16 Screening for malignant [facility] Test 08:24:31 neoplasm of breast of Medici ne (procedure) [code = 378751297] Future Scheduled 2021-10-16 COVID-19 Vaccine (#1) [facility] [employer] Test 08:24:31 [code = COVID-19 Vaccine of Medicine (#1)] Future Scheduled 2021-10-16 Pneumococcal Combined (1 [place] [employer] Test 08:24:31 - PCV) [code = of Medicine Pneumococcal Combined (1 - PCV)] Future Scheduled 2021-10-16 TETANUS SHOT (ADULT) [place] [facility] [employer] Test 08:24:31 [code = TETANUS SHOT of Medi cine (ADULT)] Future Scheduled 2021-10-16 Hepatitis C screening [facility] [employer] Test 08:24:31 (procedure) [code = of Medic ine 274767185] Future Scheduled 2021-10-16 Human immunodeficiency [facility] [employer] Test 08:24:31 virus screening of Medicine (procedure) [code = 231336831] Future Scheduled 2021-10-16 Screening for malignant [facility] Test 08:24:31 neoplasm of cervix of Medici ne (procedure) [code = 175986144] Future Scheduled 2021-10-16 ZOSTER VACCINE (1 of 2) [facility] Test 08:24:31 [code = ZOSTER VACCINE of Me dicine (1 of 2)] Future Scheduled 2021-10-16 [facility]IC[facility] IPPE [facility] 08:24:31 TO MEDICARE) [code = of Medi cine MEDICARE IPPE (WELCOME TO MEDICARE)] Future Scheduled 2021-10-16 FLU VACCINE > 6 MONTHS [facility] 08:24:31 [code = FLU VACCINE > 6 of M edicine MONTHS] Future Scheduled 2021-10-16 BMI FOLLOW UP PLAN [code [facility] Test 08:24:31 = BMI FOLLOW UP PLAN] of Med icine Future Scheduled 2021-08-24 Screening for malignant [facility] Test 10:48:22 neoplasm of colon of Medicin e (procedure) [code = 093866297] Future Scheduled 2021-08-24 Screening for malignant [facility] Test 10:48:22 neoplasm of breast of Medici ne (procedure) [code = 880162325] Future Scheduled 2021-08-24 COVID-19 Vaccine (#1) [facility] Test 10:48:22 [code = COVID-19 Vaccine of Medicine (#1)] Future Scheduled 2021-08-24 Pneumococcal Combined (1 [facility] Test 10:48:22 - PCV) [code = of Medicine Pneumococcal Combined (1 - PCV)] Future Scheduled 2021-08-24 TETANUS SHOT (ADULT) [facility] Test 10:48:22 [code = TETANUS SHOT of Medi cine (ADULT)] Future Scheduled 2021-08-24 Hepatitis C screening [facility] [employer] Test 10:48:22 (procedure) [code = of Medic ine 140996678] Future Scheduled 2021-08-24 Human immunodeficiency [facility] Test 10:48:22 virus screening of Medicine (procedure) [code = 207857604] Future Scheduled 2021-08-24 Screening for malignant [facility] Test 10:48:22 neoplasm of cervix of Medici ne (procedure) [code = 993713538] Future Scheduled 2021-08-24 ZOSTER VACCINE (1 of 2) [facility] Test 10:48:22 [code = ZOSTER VACCINE of Me dicine (1 of 2)] Future Scheduled 2021-08-24 MEDICARE IPPE (WELCOME [facility] Test 10:48:22 TO MEDICARE) [code = of Medi cine MEDICARE IPPE (WELCOME TO MEDICARE)] Future Scheduled 2021-08-24 FLU VACCINE > 6 MONTHS [employer] Test 10:48:22 [code = FLU VACCINE > 6 of M edicine MONTHS] Future Scheduled 2021-08-24 BMI FOLLOW UP PLAN [code [facility] Test 10:48:22 = BMI FOLLOW UP PLAN] of Med icine Future Scheduled 2021-07-09 Screening for malignant [facility] Test 09:35:46 neoplasm of colon of Medicin e (procedure) [code = 479520392] Future Scheduled 2021-07-09 Screening for malignant [facility] Test 09:35:46 neoplasm of breast of Medici ne (procedure) [code = 324819862] Future Scheduled 2021-07-09 COVID-19 Vaccine (#1) [facility] Test 09:35:46 [code = COVID-19 Vaccine of Medicine (#1)] Future Scheduled 2021-07-09 Pneumococcal Combined (1 [facility] Test 09:35:46 - PCV) [code = of Medicine Pneumococcal Combined (1 - PCV)] Future Scheduled 2021-07-09 TETANUS SHOT (ADULT) [facility] Test 09:35:46 [code = TETANUS SHOT of Medi cine (ADULT)] Future Scheduled 2021-07-09 Hepatitis C screening [facility] Test 09:35:46 (procedure) [code = of Medic ine 287752030] Future Scheduled 2021-07-09 Human immunodeficiency [facility] Test 09:35:46 virus screening of Medicine (procedure) [code = 774333681] Future Scheduled 2021-07-09 Screening for malignant [facility] Test 09:35:46 neoplasm of cervix of Medici ne (procedure) [code = 888722708] Future Scheduled 2021-07-09 ZOSTER VACCINE (1 of 2) [facility] Test 09:35:46 [code = ZOSTER VACCINE of Me dicine (1 of 2)] Future Scheduled 2021-07-09 MEDICARE IPPE (WELCOME [facility] Test 09:35:46 TO MEDICARE) [code = of Medi cine MEDICARE IPPE (WELCOME TO MEDICARE)] Future Scheduled 2021-07-09 FLU VACCINE > 6 MONTHS [facility] Test 09:35:46 [code = FLU VACCINE > 6 of M edicine MONTHS] Future Scheduled 2021-07-09 BMI FOLLOW UP PLAN [code [facility] Test 09:35:46 = BMI FOLLOW UP PLAN] of Med icine Future Scheduled 2021-06-27 CBC W/AUTO DIFF WITH Ordered: [facility] Test 10:59:31 PLATELETS [code = 06/27/2021 of Medicin e 89570-4] Future Scheduled 2021-06-27 COMPREHENSIVE METABOLIC Ordered: [facility] Test 10:59:31 PANEL [code = 27132-6] 06/27/2021 of Me dicine Future Scheduled 2021-06-27 FOLATE [code = 2284-8] Ordered: [facility] Test 10:59:31 06/27/2021 of Medicine Future Scheduled 2021-06-27 HEMOGLOBIN A1C [code = Ordered: [facility] Test 10:59:31 4548-4] 06/27/2021 of Medicine Future Scheduled 2021-06-27 IRON+TIBC+%SAT [code = Ordered: [facility] Test 10:59:31 NOCPT] 06/27/2021 of Medicine Future Scheduled 2021-06-27 IRON, TIBC AND FERRITIN Ordered: [facility] Test 10:59:31 PANEL [code = NOCPT] 06/27/2021 of Medi cine Future Scheduled 2021-06-27 THYROID PROFILE (T3U - Ordered: [facility] Test 10:59:31 T4 - T7 - TSH) [code = 06/27/2021 of Me dicine NOCPT] Future Scheduled 2021-06-27 URINALYSIS, COMPLETE Ordered: [facility] Test 10:59:31 W/REFLEX TO CULTURE 06/27/2021 of Medic ine [code = 13023-2] Future Scheduled 2021-06-27 VITAMIN A [code = Ordered: [facility] Test 10:59:31 2923-1] 06/27/2021 of Medicine Future Scheduled 2021-06-27 VITAMIN B1 [code = Ordered: [facility] Test 10:59:31 63699-8] 06/27/2021 of Medicine Future Scheduled 2021-06-27 VITAMIN B12 [code = Ordered: [facility] Test 10:59:31 2132-9] 06/27/2021 of Medicine Future Scheduled 2021-06-27 VITAMIN B-6 LEVEL [code Ordered: [facility] Test 10:59:31 = [id number]] 06/27/2021 of Medicine Future Scheduled 2021-06-27 VITAMIN D 25 HYDROXY Ordered: [facility] Test 10:59:31 [code = 1989-3] 06/27/2021 of Medicine Future Scheduled 2021-06-27 ELECTROCARDIOGRAM 1 Occurrences [facility] Test 10:59:31 COMPLETE [code = 20176] starting of M edicine 06/27/2021 until 06/27/2022 Future Scheduled 2021-06-27 XR CHEST PA AND LATERAL 1 Occurrences [facility] Test 10:59:31 [code = 96682-3] starting of Medicine 06/27/2021 until 06/27/2022 Future Scheduled 2021-06-27 EGD W/MAC - GI DEPT 1 Occurrences [facility] Test 10:59:31 [code = 20442] starting of Medicine 06/27/2021 until 12/28/2021 Future Scheduled 2021-06-27 PT INSTR GIVEN - TOBACCO Ordered: [facility] Test 10:00:52 [code = NOCPT] 06/27/2021 of Medicine Future Scheduled 2021-02-[address] [facility] Test 00:00:00 (12+) [code = DEPRESSION [facility] (12+)] Future Scheduled 2020-02-19 MEDICARE ANNUAL WELLNESS [facility] Test 00:00:00 (YEAR 2 or FIRST YEAR if [facility] no [facility]PE) [code = MEDICARE ANNUAL WELLNESS (YEAR 2 or FIRST YEAR if no IPPE)] Future Scheduled 2017-04-22 SHINGLES VACCINES ([address] [facility] Test 00:00:00 2) [code = SHINGLES Medical Center VACCINES (1 of 2)] Future Scheduled 2012-04-22 Lipid panel (procedure) [facility] Test 00:00:00 [code = 64922937] Medical Ce nter Future Scheduled 1988-04-22 Screening for malignant [facility] Test 00:00:00 neoplasm of cervix Medical C enter (procedure) [code = 654127132] Future Scheduled 1986-04-22 DTAP/TDAP/TD VACCINES ([address] [facility] Test 00:00:00 - Tdap) [code = Medical Cent er DTAP/TDAP/TD VACCINES (1 - Tdap)] Future Scheduled 1985-04-22 HEPATITIS C SCREENING [facility] Test 00:00:00 [code = HEPATITIS C Medical Center SCREENING] Future Scheduled 1965 COVID-19 VACCINE (#1) [facility] Test 00:00:00 [code = COVID-19 VACCINE Med ica Center (#1)] Future Scheduled 1965 Sigmoidoscopy [code = [facility] Test 00:[facility]:00 Sigmoidoscopy] Medical Cente r Future Scheduled 1965 Screening for malignant [facility] Test 00:00:00 neoplasm of breast Medical C enter (procedure) [code = 749073075] Future Scheduled 1965 CT Colonography (combo) [facility] Test 00:00:00 [code = CT Colonography [facility] Center (combo)] Future Scheduled 1965 Screening for malignant [facility] Test 00:00:00 neoplasm of colon Medical Ce nter (procedure) [code = 141583049] Future Scheduled 1965 Screening for malignant [facility] Test 00:00:00 neoplasm of colon Medical Ce nter (procedure) [code = 550628196] Future Scheduled 1967 Screening for malignant [facility] Test 00:00:00 neoplasm of colon Medical Ce nter (procedure) [code = 143839427] Future Scheduled 1967 Screening for malignant [facility] Test 00:00:00 neoplasm of colon Medical Ce nter (procedure) [code = 217462374] Encounters Start End Encounter Admission Attending Care Care Encounter Source Date/Time Date/Time Type Type Clinicians Facility Department ID 2021-03-14 [facility] [id number] 14:40:08 [place] [facility] 2021-03-14 [facility] [id number] Common 14:19:37 [place] [id number] [facility] 2021-03-14 [facility] [id number] Common 13:09:27 [place] [id number] [facility] 2021-03-14 [facility] [id number] Common 13:05:51 [place] [id number] [facility] 2021-03-14 Outpatient Julien, [facility] [id number] Common 13:02:51 [place] [id number] [facility] 2021-03-14 Outpatient Julien, [facility] [id number] Common 12:14:31 [place] [id number] [facility] 2021-03-14 Outpatient Julien, [facility] [id number] Common 11:55:30 [place] [id number] [facility] 2021-11-02 2021-11-02 Emergency X Apolinar [facility] ERT [id number] [employer] 10:42:00 13:41:00 ity of Surgery [facility] 2021-11-02 2021-11-02 Emergency Apolinar [facility] [id number] Univers 10:42:00 13:41:00 Arabella RANGEL 350.1.13.10 i ty [facility] 4.2.7.2.686 [facility] [id number] [facility]rews 084 Branch 2021-10-16 2021-10-16 Office GABRIELE Eisenberg [id number] [place] [address] 09:30:00 10:56:19 Visit Sharon A AMBULATOR 350.1.13.21 College Y 0.2.7.2.686 of [id number] [facility] laura 810 e 2021-10-16 2021-10-16 Office GABRIELE HAYDEN [id number] [place] [address] 07:50:45 08:33:14 Visit LITO AMBULATOR 350.1.13.21 College Y 0.2.7.2.686 of [id number] [facility] laura 810 e 2021-10-10 2021-10-10 [facility] [id number] Common 00:00:00 00:00:00 [facility] 2021-09-21 2021-09-21 Outpatient SHEREEN POLANCO [id number] [place] 09:30:00 09:30:00 FELECIA bob 2021-08-23 2021-08-23 Office GABRIELE HAYDEN 1.2.840.[id number] [place] [address] 07:55:26 10:09:21 Visit LITO AMBULATOR 350.1.13.21 College Y 0.2.7.2.686 of [id number] [facility] laura 810 e 2021-07-13 2021-07-13 ambulatory [facility] [id number] Common 00:00:00 00:00:00 [facility] 2021-06-27 2021-06-27 Office Devan Logan [id number] [facility] 10:30:00 11:12:12 Visit [place] AMBULATOR 350.1.13.21 College Y 0.2.7.2.686 of [id number] [facility] laura 805 e 2021-06-20 2021-06-20 Outpatient Devan LOGAN [facility] [id number] [place] [address] 00:00:00 00:00:00 Bill Medicin e 2021-05-30 2021-05-30 ambulatory [facility] [id number] Common 00:00:00 00:00:00 [facility] 2021-03-14 2021-03-14 ambulatory [facility]C [facility] [id number] Common 00:00:00 00:00:00 [facility] 2021-03-13 2021-03-13 ambulatory [facility] [id number] Common 00:00:00 00:00:00 [facility] 2021-02-13 2021-02-13 Telephone Luca, [facility] [id number] [facility] 00:00:00 00:00:00 [facility] 2021-01-31 2021-01-31 ambulatory STLMLC [facility] [id number] Common 00:00:00 00:00:00 [facility] 2021-01-25 2021-01-25 Orders Doctor VALLES 1.2.840.[id number] [place] [address] 00:00:00 00:00:00 Only Unassigned, BHARAT 350.1.13.10 [place] [facility] 4.2.7.2.686 Bartolo as [id number] [place] [address] Branch 2020-10-19 2020-10-19 Outpatient [facility] [id number] Common 00:00:00 00:00:00 [facility] 2020-07-19 2020-07-19 Outpatient [facility] [id number] Common 00:00:00 00:00:00 [facility] 2020-06-29 2020-06-29 Outpatient [facility] [id number] Common 00:00:00 00:00:00 [facility] 2019-12-02 2019-12-02 Outpatient [facility] [id number] Common 00:00:00 00:00:00 [facility] 2019-05-13 2019-05-13 [facility] [id number] Common 11:52:00 11:52:[address] [facility] 2018-12-01 2018-12-01 [facility] [id number] Common 09:15:00 09:15:[address] [facility] 2018-08-03 2018-08-03 [facility] [id number] Common 13:45:00 13:45:[address] [facility] 2018-02-27 2018-03-29 Recurring nullFlavo [facility] [id number] Memoria 15:07:00 05:59:00 r Jitendra [facility] 2018-02-27 2018-03-29 Recurring nullFlavo [facility] 83794 24584 Memoria 15:07:00 05:59:00 rick Ham 01 [facility] 2018-02-27 2018-03-28 Outpatient KARL Wang [facility]SE [id number] 09:07:00 23:59:00 Libby 2018-03-17 2018-03-17 [facility] [id number] Common 12:21:00 12:21:[address] [facility] 2018-02-24 2018-02-24 [facility] [id number] Common 10:30:00 10:30:[address] [facility] 2018-01-23 2018-02-22 Recurring nullFlavo [facility] [id number] Memoria 15:28:00 05:59:00 r Jitendra 00 l [facility] 2018-01-23 2018-02-22 Recurring nullFlavo [facility] 49557 65428 Memoria 15:28:00 05:59:00 r Jitendra 00 l [facility] 2018-01-23 2018-02-21 Outpatient KARL Wang [facility] [id number] 09:28:00 23:59:00 Libby 2018-02-03 2018-02-03 [facility] [id number] Common 13:15:00 13:15:[address] [facility] 2017-12-03 2017-12-03 [facility] [id number] Common 16:00:00 16:00:[address] [facility] Results This patient has no known results.
[2021-11-04] MEDS ORDERED: DIPHENHYDRAMINE 50 MG/ML VIAL ONE (12:24)
[2021-11-04] MEDS ORDERED: NA CHLORIDE 0.9% 1,000 ML ONE (12:24)
[2021-11-04] MEDS ORDERED: METOCLOPRAMIDE 10 MG/2mL INJ ONE (12:24)
[2021-11-04 12:43] LABS: Absolute Lymphocytes (CBC) 1.9 K/uL (0.7-4.9); Hematocrit 42.9 % (36.0-45.0); Lymphocytes % 21.7 % (15.3-44.8); MCV 89.5 fL (80-100); MPV 9.5 fL (7.6-11.3)
[2021-11-04 12:52] LABS: Potassium 3.3 mmol/L (3.5-5.1)
--- NOTE | 2021-11-04 13:45 | RAD REPORT ---
EXAM DESCRIPTION: CT - Head Brain Wo Cont - 11/04/2021 1:01 pm CLINICAL HISTORY: Headache COMPARISON: Lower Extremity Artery Uni Ltd dated 10/10/2021No comparisons TECHNIQUE: Axial 5 mm thick images of the head were obtained without IV contrast. All CT scans are performed using dose optimization technique as appropriate and may include automated exposure control or mA/KV adjustment according to patient size. FINDINGS: No intracranial hemorrhage, mass, edema or shift of mid-line structures. No acute infarcti on changes seen. No abnormal extra-axial fluid collections. Ventricles are normal. Mastoid air cells and visualized portions of the paranasal sinuses are clear. No acute bony findings. IMPRESSION: Negative non-contrast CT head examination.
[2021-11-04] MEDS ORDERED: KETOROLAC 30 MG/ML INJ ONE (14:47)
--- NOTE | 2021-11-04 15:44 | RAD REPORT ---
EXAM DESCRIPTION: CT - Head angio - 11/04/2021 3:19 pm CLINICAL HISTORY: Headache, new or worsening TECHNIQUE: During dynamic enhancement using nonionic IV contrast, axial 1 millimeter thick images of the head were obtained. Sagittal and axial reconstruction images were generated using MIP technique and reviewed. All CT scans are performed using dose optimization technique as appropriate and may include automated exposure control or mA/KV adjustment according to patient size. COMPARISON: CT head same date FINDINGS: No aneurysm or vascular malformation identified. Major venous sinuses are patent. No stenosis, named branch occlusion, vasculitis or other significant vascular finding identifiable. R ight vertebral artery terminates at the posteroinferior cerebellar artery. Large bilateral posterior communicating arteries are present supplying the majority of the posterior cerebral artery circulatio n. These variants result in the normally small basilar artery. IMPRESSION: Negative CT angio head examination for acute or significant finding.
--- NOTE | 2021-11-04 16:27 | ER ---
Nurse's Notes [facility] Name: Fanny Vargas Age: 56 yrs Sex: Female : 1965 Arrival Date: 11/04/2021 Time: 11:52 Bed 2 Private MD: Bhupinder Julien Diagnosis: Headache;Essential (primary) hypertension Presentation: 11/04 12:07 Chief complaint: Headache and nausea x 6 days. Coronavirus screen: At this time, the iw client does not indicate any symptoms associated with coronavirus-19. Ebola Screen: No symptoms or risks identified at this time. Risk Assessment: Do you want to hurt yourself or someone else? Patient reports no desire to harm self or others. Onset of symptoms was October 30, 2021. 12:07 Method Of Arrival: Wheelchair iw 12:07 Acuity: SUKHDEV 3 iw 16:57 Initial Sepsis Screen: Does the patient meet any 2 criteria? No. Patient's initial jl7 sepsis screen is negative. Does the patient have a suspected source of infection? No. Patient's initial sepsis screen is negative. Historical: - Allergies: 12:08 No Known Drug Allergies; iw - Home Meds: 12:08 Amitriptyline Oral [Active]; Celexa Oral [Active]; Naproxen Oral [Active]; iw - PMHx: 12:08 Fibromyalgia; Rheumatoid Arthritis; iw 12:08 Hypertension; iw - Immunization history:: Adult Immunizations up to date. - Social history:: Smoking status: Patient denies any tobacco usage or history of. Screenin:29 Abuse screen: Denies threats or abuse. Denies injuries from another. Nutritional jl7 screening: No deficits noted. Tuberculosis screening: No symptoms or risk factors identified. Fall Risk IV access (20 points). Total Matos Fall Scale indicates No Risk (0-24 pts). Assessment: 12:29 General: Appears in no apparent distress. uncomfortable, Behavior is cooperative, jl7 appropriate for age, anxious. Pain: Complains of pain in forehead Pain radiates to top of head and occipital area Pain currently is 12 out of 10 on a pain scale. Quality of pain is described as throbbing, Pain began x6 days Is continuous. Neuro: Level of Consciousness is awake, alert, obeys commands, Oriented to person, place, time, situation, Distributed Generation Project Manager are equal bilaterally Moves all extremities. Full function Gait is steady, Speech is normal, Facial symmetry appears normal, Reports photophobia. Cardiovascular: Patient's skin is warm and dry. Respiratory: Airway is patent Respiratory effort is even, unlabored, Respiratory pattern is regular, symmetrical. GI: Reports nausea. Derm: Skin is pink, warm \T\ dry. 13:12 Reassessment: Patient appears in no apparent distress at this time. pt returned from 7 CT, reports decrease in pain, rated 8/10 at this time. 14:40 Reassessment: Patient appears in no apparent distress at this time. Patient and/or jl7 family updated on plan of care and expected duration. Pain level reassessed. Patient is alert, oriented x 3, equal unlabored respirations, skin warm/dry/pink. Pt reports increased pain, rated 10/10, ERD gave VO for 15 mg Toradol IVP, pt medicated as ordered. 15:30 Reassessment: Patient appears in no apparent distress at this time. Patient and/or jl7 family updated on plan of care and expected duration. Pain level reassessed. Patient is alert, oriented x 3, equal unlabored respirations, skin warm/dry/pink. pain decreased, rated 8/10 at this time. Vital Signs: 12:07 BP 106 / 68; Pulse 85; Resp 16; Temp 98.1; Pulse Ox 100% on R/A; Pain 10/10; iw 12:29 BP 136 / 73; Pulse 79; Resp 15; Pulse Ox 100% ; Pain 10/10; jl7 13:12 BP 138 / 83; Pulse 72; Resp 20; Pulse Ox 96% ; Pain 8/10; jl7 14:30 BP 151 / 71; Pulse 72; Resp 15; Pulse Ox 96% ; Pain 10/10; jl7 15:30 Pain 8/10; jl7 15:30 BP 139 / 75; Pulse 67; Resp 15; Pulse Ox 96% ; Pain 8/10; jl7 ED Course: 11:52 Patient arrived in ED. am2 11:52 Bhupinder Julien DO is Private Physician. am2 12:04 Greg Choi DO is Attending Physician. ms3 12:08 Triage completed. iw 12:08 Arm band placed on. iw 12:09 Bassem Richey, RN is Primary Nurse. jl7 12:29 Patient has correct armband on for positive identification. Bed in low position. Call jl7 light in reach. Side rails up X2. Pulse ox on. NIBP on. 12:29 Initial lab(s) drawn, by me, sent to lab. Inserted saline lock: 20 gauge in left jl7 antecubital area, using aseptic technique. Blood collected. 13:02 CT Head Brain wo Cont In Process Unspecified. EDMS 15:21 CT Head Angio In Process Unspecified. EDMS 16:25 Syd Thomas MD is Referral Physician. ms3 16:56 No provider procedures requiring assistance completed. IV discontinued, intact, jl7 bleeding controlled, No redness/swelling at site. Pressure dressing applied. Administered Medications: 12:26 Drug: NS 0.9% 1000 ml Route: IV; Rate: 1000 ml; Site: left antecubital; jl7 16:00 Follow up: IV Status: Completed infusion; IV Intake: 1000ml jl7 12:27 Drug: Reglan (metoCLOPramide) 10 mg Route: IVP; Site: left antecubital; jl7 13:19 Follow up: Response: No adverse reaction jl7 12:28 Drug: Benadryl (diphenhydrAMINE) 25 mg Route: IVP; Site: left antecubital; jl7 13:19 Follow up: Response: No adverse reaction jl7 14:39 Drug: TORadol - (ketorolac) 15 mg Route: IVP; Site: left antecubital; jl7 15:30 Follow up: Pain 8/10 Adult; Response: No adverse reaction; Pain is decreased jl7 16:50 Drug: Decadron - Dexamethasone 8 mg Route: IVP; Site: left antecubital; jl7 16:54 Follow up: Response: Medication administered at discharge. jl7 16:53 Not Given (Physician Discretion): Dexamethasone 10 mg IVP once; (not to exceed 40 mg) jl7 Medication: 12:29 VIS not applicable for this client. jl7 Intake: 16:00 IV: 1000ml; Total: 1000ml. jl7 Outcome: 16:26 Discharge ordered by . ms3 16:56 Discharged to home ambulatory, with family. jl7 16:56 Condition: stable 16:56 Discharge instructions given to patient, family, Instructed on discharge instructions, follow up and referral plans. medication usage, Demonstrated understanding of instructions, follow-up care, medications, Prescriptions given X 1. 16:57 Patient left the ED. jl7 Signatures: Dispatcher [employer] Yamileth Figueroa RN Bassem Gonzales RN RN jl7 Bettina Spain am2 Greg Choi DO DO ms3
--- NOTE | 2021-11-04 16:27 | EDPHYS ---
Physician Documentation [facility] Name: Fanny Vargas Age: 56 yrs Sex: Female : 1965 Arrival Date: 11/04/2021 Time: 11:52 Bed 2 Private MD: W[facility] ED Physician Greg Choi HPI: 11/04 12:31 This 56 yrs old Female presents to ER via Wheelchair with complaints of ms3 Headache. 12:31 56-year-old female with past medical history of fibromyalgia, rheumatoid arthritis, ms3 hypertension presents for headache that began on Friday. Patient states the headache has become worse. Patient states the pain is 10/10 described as throbbing and located generally throughout her head. Patient states she has taken ibuprofen without relief. Patient was seen in [place] on Friday without a diagnosis.. Historical: - Allergies: 12:08 No Known Drug Allergies; iw - Home Meds: 12:08 Amitriptyline Oral [Active]; Celexa Oral [Active]; Naproxen Oral [Active]; iw - PMHx: 12:08 Fibromyalgia; Rheumatoid Arthritis; iw 12:08 Hypertension; iw - Immunization history:: Adult Immunizations up to date. - Social history:: Smoking status: Patient denies any tobacco usage or history of. ROS: 12:31 Constitutional: Negative for fever, and chills. Eyes: Negative for injury, pain, ms3 redness, and discharge, Neck: Negative for injury, pain, and swelling, Cardiovascular: Negative for chest pain, and palpitations. Respiratory: Negative for shortness of breath, cough, wheezing, and pleuritic chest pain, Abdomen/GI: Negative for abdominal pain, nausea, vomiting, diarrhea, and constipation, MS/Extremity: Negative for injury and deformity, Skin: Negative for injury, rash, and discoloration. 12:31 Neuro: Positive for headache. Exam: 12:31 Constitutional: This is a well developed, well nourished patient who is awake, alert, ms3 and in no acute distress. Head/Face: Normocephalic, atraumatic. Neck: Trachea midline, no cervical lymphadenopathy. Supple, full range of motion without nuchal rigidity, or vertebral point tenderness. No Meningismus. Chest/axilla: Normal chest wall appearance and motion. Nontender with no deformity. Cardiovascular: Regular rate and rhythm with a normal S1 and S2. No gallops, murmurs, or rubs. Normal PMI, no JVD. No pulse deficits. Respiratory: Lungs have equal breath sounds bilaterally, clear to auscultation and percussion. No rales, rhonchi or wheezes noted. No increased work of breathing, no retractions or nasal flaring. Abdomen/GI: Soft, non-tender, with normal bowel sounds. No distension or tympany. No guarding or rebound. No evidence of tenderness throughout. Skin: Warm, dry with normal turgor. Normal color with no rashes, no lesions, and no evidence of cellulitis. MS/ Extremity: Pulses equal, no cyanosis. Neurovascular intact. Full, normal range of motion. Neuro: Awake and alert, GCS 15, oriented to person, place, time, and situation. Cranial nerves II-XII grossly intact. Motor strength 5/5 in all extremities. Sensory grossly intact. Cerebellar exam normal. Normal gait. Psych: Awake, alert, with orientation to person, place and time. Behavior, mood, and affect are within normal limits. Vital Signs: 12:07 BP 106 / 68; Pulse 85; Resp 16; Temp 98.1; Pulse Ox 100% on R/A; Pain 10/10; iw 12:29 BP 136 / 73; Pulse 79; Resp 15; Pulse Ox 100% ; Pain 10/10; jl7 13:12 BP 138 / 83; Pulse 72; Resp 20; Pulse Ox 96% ; Pain 8/10; jl7 14:30 BP 151 / 71; Pulse 72; Resp 15; Pulse Ox 96% ; Pain 10/10; jl7 15:30 Pain 8/10; jl7 15:30 BP 139 / 75; Pulse 67; Resp 15; Pulse Ox 96% ; Pain 8/10; jl7 MDM: 12:10 Patient medically screened. ms3 12:31 Differential diagnosis: migraine, subarachnoid bleed, tension headache. ms3 16:54 Data reviewed: vital signs, nurses notes, lab test result(s), radiologic studies, and ms3 as a result, I will discharge patient. Counseling: I had a detailed discussion with the patient and/or guardian regarding: the historical points, exam findings, and any diagnostic results supporting the discharge/admit diagnosis, lab results, radiology results, the need for outpatient follow up, to return to the emergency department if symptoms worsen or persist or if there are any questions or concerns that arise at home. Special discussion: I discussed with the patient/guardian in detail that at this point there is no indication for admission to the hospital. It is understood, however, that if the symptoms persist or worsen the patient needs to return immediately for re-evaluation. ED course: Patient is improved, alert and oriented x4, in no apparent distress, nontoxic-appearing, ambulatory in emergency department, speaking full sentences. Discussed follow-up with Dr. Thomas with patient patient understands agrees. All questions were answered. Return precautions discussed include worsening symptoms, or any other concerns. 11/04 12:12 Order name: CBC with Diff; Complete Time: 13:44 ms3 11/04 12:12 Order name: BMP; Complete Time: 13:44 ms3 11/04 12:12 Order name: CT Head Brain wo Cont; Complete Time: 13:54 ms3 11/04 14:37 Order name: CT Head Angio; Complete Time: 16:01 ms3 Administered Medications: 12:26 Drug: NS 0.9% 1000 ml Route: IV; Rate: 1000 ml; Site: left antecubital; jl7 16:00 Follow up: IV Status: Completed infusion; IV Intake: 1000ml jl7 12:27 Drug: Reglan (metoCLOPramide) 10 mg Route: IVP; Site: left antecubital; jl7 13:19 Follow up: Response: No adverse reaction jl7 12:28 Drug: Benadryl (diphenhydrAMINE) 25 mg Route: IVP; Site: left antecubital; jl7 13:19 Follow up: Response: No adverse reaction jl7 14:39 Drug: TORadol - (ketorolac) 15 mg Route: IVP; Site: left antecubital; jl7 15:30 Follow up: Pain 8/10 Adult; Response: No adverse reaction; Pain is decreased jl7 16:50 Drug: Decadron - Dexamethasone 8 mg Route: IVP; Site: left antecubital; jl7 16:54 Follow up: Response: Medication administered at discharge. jl7 16:53 Not Given (Physician Discretion): Dexamethasone 10 mg IVP once; (not to exceed 40 mg) jl7 Disposition Summary: 11/04/21 16:26 Discharge Ordered Location: Home ms3 Condition: Stable ms3 Diagnosis - Headache ms3 - Essential (primary) hypertension ms3 Followup: ms3 - With: Syd Thomas MD - When: 2 - 3 days - Reason: Recheck today's complaints Discharge Instructions: - Discharge Summary Sheet ms3 - General Headache Without Cause ms3 Forms: - Medication Reconciliation Form ms3 - Thank You Letter ms3 - Antibiotic Education ms3 - Prescription Opioid Use ms3 Prescriptions: - Fioricet 50-300-40 mg Oral capsule - take 1 capsule by ORAL route every 4 hours as needed; 20 capsule; Refills: 0, ms3 Product Selection Permitted Signatures: Dispatcher [employer] Yamileth Figueroa RN Bassem Gonzales RN RN jl7 Greg Choi, DO ms3
[2021-11-04] MEDS ORDERED: dexAMETHasone 4 MG/ML VIAL ONE (16:56)
[2021-11-06 02:27] VITALS: TEMP 98.1
[2021-11-06 02:32] VITALS: O2SAT 96
[2021-11-06 02:39] VITALS: BP 139/75
== END 2021-11-04 16:57 | disposition home or self-care (01) ==
LOC: ER 11:51
DX: R51.9 Headache, unspecified (principal); I10 Essential (primary) hypertension
CPT/HCPCS: 96361; 85025; 80048; 36415; 70450; 70496; 96375; 96374; 99284; Q9967; J1100; J2765; J1200; J7030

== ENCOUNTER 2022-10-02 05:59 | Day surgery (SDC) | payer OTHER ==
[2022-10-02] MEDS ORDERED: NA CHLORIDE 0.9% 1,000 ML ONE (06:38)
[2022-10-02] MEDS ORDERED: propofoL 200 MG/20 ML VIAL IV ONE (07:10)
[2022-10-02] MEDS ORDERED: LIDOCAINE 1% MPF 5 ML VIAL ONE (07:11)
[2022-10-02] MEDS ORDERED: ONDANSETRON 4 MG/2 ML VIAL ONE (09:20)
[2022-10-02] MEDS ORDERED: GLYCOPYRROLATE 0.2 MG/ML SYR ONE (09:20)
[2022-10-02 09:25] VITALS: O2SAT 100
[2022-10-02 09:31] VITALS: BP 104/68; TEMP 97.3
== END 2022-10-02 09:00 | disposition home or self-care (01) ==
LOC: PRE 05:59 → OR 09:00
PROVIDERS: ATTEND Surgery
PROC: 0DJD8ZZ Inspection of Lower Intestinal Tract, Via Natural or Artificial Opening Endoscopic (ICD-10-PCS; principal; 2022-10-02 07:30)
DX: Z12.11 Encounter for screening for malignant neoplasm of colon (principal); K57.30 Diverticulosis of large intestine without perforation or abscess without bleeding; K64.4 Residual hemorrhoidal skin tags; K64.8 Other hemorrhoids
CPT/HCPCS: 82947; 45378; J2704; J2001; J2405; J7030